=== PATIENT | male | born 2000 | race Caucasian/White ===

== ENCOUNTER 2022-07-27 21:18 | Emergency (ER) | payer BC, SELFPAY ==
[2022-07-27 21:26] VITALS: BP 138/77; PULSE 70; RESP 18; TEMP 37.1; O2SAT 96; BMI 29.8
--- NOTE | 2022-07-27 21:38 | CRLHL7_ITS ---
For Patients: As a result of the Century Cures Act, medical imaging exams and procedure reports are released immediately into your electronic medical record. You may view this report before your referring provider. If you have questions, please contact your health care provider. INDICATION: Cough. TECHNIQUE: Chest 2 view. COMPARISON: None. FINDINGS: Cardiovascular and mediastinum: Heart size and vasculature are normal in caliber and appearance. Lungs and pleural spaces: Lungs are clear. No sign of infiltrate or mass. No sign of pleural effusion. No pneumothorax. Bones and soft tissues: No significant findings. IMPRESSION: No acute cardiopulmonary abnormality. Dictated by Jamal Ashley MD @ 07/27/2022 10:05:32 PM (Electronically Signed)
[2022-07-27] MEDS: IPRAT-ALBUT 0.5-2.5 MG/3 ML NEB 1 NEB IH (21:42)
[2022-07-27] MEDS: predniSONE 10 MG TABLET 50 MG PO (21:46)
--- NOTE | 2022-07-27 21:55 | ED_ITS ---
HPI - SOB/Dyspnea General Date Seen: 07/27/22 Chief Complaint: Shortness of Breath/Dyspnea Stated Complaint: Hard of breathing. Time Seen by Provider: 07/27/22 21:20 Source: patient and family Mode of arrival: ambulatory Limitations: no limitations History of Present Illness HPI Narrative: Patient is a 22-year-old gentleman with a history of asthma, he presents here he has been trying [id number] medications and also his puffer, which eased approximately 6 times today. He reports that he feels short of breath when he is move around inaudibly wheezy. Denies chest pain, fevers chills, purulent sputum production, nausea vomiting, or other issues. Had this before when he was exposed to cats he says but he has been around no cats recently. 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 No previous history of intubation, for admission secondary to asthma. MD elicited complaint: shortness of breath and asthma attack Pertinent past history: asthma Onset (ago): day(s) Timing: constant Severity: moderate Exacerbating factors: movement, coughing and deep breaths Relieving factors: bronchodilators Known history of: asthma Associated symptoms: denies other symptoms Treatment prior to arrival: none Related Data Home oxygen amount: none Home Medications Medication Instructions Recorded Confirmed albuterol sulfate .ROUTE 07/27/22 fluticasone furoate 100 1 inh inhalation DAILY 07/27/22 07/27/22 mcg-vilanterol 25 mcg/dose inhalation powder (Breo Ellipta) Allergies Allergy/AdvReac Type Severity Reaction Status Date / Time cats AdvReac Unknown Uncoded 07/27/22 21:30 Review of Systems Status of ROS: Reports: 10 or more systems reviewed and unremarkable except as noted in History and below [facility] Medical History Asthma Social History Smoking Status: Never smoker Do you use any of these nicotine containing products: None How often do you have a drink containing alcohol: monthly or less AUDIT-C Alcohol total score: 1 Non-prescribed substance use: denies use Exam Narrative: Exam Narrative: Patient is seen in room 3 in no apparent distress, speaking to me in full sentences. Pupils are equal round reactive to light there is no scleral icterus redness TMs are normal oropharynx normal cranial nerves 3-12 are normal, neck is supple, chest reveals musical wheezes in all lung spencer on expiration, no inspiratory wheezes are noted. There is no signs or spy reza distress. Heart sounds are normal with normal S1-S2 no S3-S4 clicks murmurs or gallops his abdomen is soft and obese there is no guarding no past splenomegaly skin rule petechiae rashes negative Homans sign with no edema noted bilaterally. And news is all extremities well with normal power in his upper lower extremities in these by her laterally symmetrical. Skin reveals no rashes. Const: Vital Signs, click to edit/add: Vital Signs - 24 hr 07/27/22 21:26 Temperature 98.8 F Pulse Rate [Left P ulse Oximeter] 70 Respiratory Rate 18 Blood Pressure [Le ft Upper Arm] 138/77 Pulse Oximetry 96 Oxygen Delivery Me thod Room Air Documenting provider has reviewed patient's vital signs: yes Course Course Hospital Course: Patient improved here with the above treatments he felt the best he has felt in a couple days. At this point I would be reasonable with our improvement in peak flows to discharge him home, he is almost out of his inhaler and I gave him another prescription for this along with the prednisone. We went over signs and symptoms of worsening when he should reappear to the emergency room and he was comfortable with this plan. I recommend follow-up with primary care within the next 5 days for recheck. Sooner if issues we will also call in if the COVID swab is positive. Vital Signs Vital signs: Initial Vital Signs Temperature 98.8 F 07/27/22 21:26 Temperature Source Temporal Artery Scan 07/27/22 21:26 Pulse Rate 70 07/27/22 21:26 Pulse Rhythm 07/27/22 21:26 Respiratory Rate 18 07/27/22 21:26 Blood Pressure 138/77 07/27/22 21:26 Blood Pressure Mean 97 07/27/22 21:26 Blood Pressure Position Sitting 07/27/22 21:26 Pulse Oximetry 96 07/27/22 21:26 Oxygen Delivery Method 07/27/22 21:26 Vital Signs Temperature 98.8 F 07/27/22 21: Pulse Rate 70 07/27/22 21:26 Respiratory Rate 18 09/18/22 21:26 Blood Pressure 138/77 07/27/22 21:26 Pulse Oximetry 96 07/27/22 21:26 Oxygen Delivery Method 07/27/22 21:26 Temperature 98.8 F 07/27/22 21:26 Pulse Rate 70 07/27/22 21:26 Respiratory Rate 18 07/27/22 21:26 Blood Pressure 138/77 07/27/22 21:26 Pulse Oximetry 96 07/27/22 21:26 Oxygen Delivery Method 07/27/22 21:26 MDM - SOB/Dyspnea MDM Narrative Medical decision making narrative: Life-threatening differential diagnosis includes occluded COPD exacerbation, pulmonary edema, acute coronary syndromes, pulmonary embolism, pneumonia, and pneumothorax. Other differential diagnosis considerations include asthma, bronchitis as well as other etiologies We will do peak flow, will get a chest x-ray, we will give him a DuoNeb here, along with some prednisone. Differential Diagnosis Differential diagnosis: Likely acute exacerbation of chronic obstructive airways disease, congestive heart failure, community acquired pneumonia and asthma with exacerbation Medical Records Attestation: I reviewed the patient's medical records. Imaging Data Chest x-ray: Attestation: I have reviewed the pertinent imaging results. My impression: Nothing acute hyperinflation Radiologist's impression: atient: CHAVA DUGAN Facility:?[facility] Patient ID:?[id number] Site Patient ID:?[id number]. Site :?[id number] Study:?XRay Chest 2 views-07/27/2022 9:54:15 PM Ordering Physician:Fernanda Landry Final Report: INDICATION: Cough. TECHNIQUE: Chest 2 view. COMPARISON: None. FINDINGS: Cardiovascular and mediastinum: Heart size and vasculature are normal in caliber and appearance. Lungs and pleural spaces: Lungs are clear. No sign of infiltrate or mass. No sign of pleural effusion. No pneumothorax. Bones and soft tissues: No significant findings. IMPRESSION: No acute cardiopulmonary abnormality. Dictated by Jamal Ashley MD @ 07/27/2022 10:05:32 PM (Electronic Signature) Discharge Plan Discharge Clinical Impression: Asthma with acute exacerbation Patient Disposition: Home, Self-Care Condition: Improved Instructions: Asthma (DC), How to Use a Metered-Dose Inhaler (ED), Wheezing (ED) Additional Instructions: Home rest medications as directed I have given you prescription for a new inhaler along with the prednisone. You may take the other medications also, the prednisone will kick in and really help you, increasing chest pain shortness of breath or other issues you should come back, but I suspect that this will help you amazingly well. Follow-up with primary care, but still primary care doctor you can see in follow-up. Prescriptions: No Action fluticasone furoate-vilanterol [Breo Ellipta] 100-25 mcg/dose blister with device 1 inh inhalation DAILY albuterol sulfate .ROUTE Follow Up/Referrals: Vidal Bueno MD [Staff Physician] - Provider,Not a Local [Referring] - Frantz Carranza MD [Emergency Provider] - Stand Alone Forms: [facility] Info Instructions
[2022-07-27 22:00] VITALS: RESP 16; O2SAT 99
--- NOTE | 2022-07-27 22:07 | ED.NURSE ---
PeakFlow preneb 140. PeakFlow postneb 360.
[2022-07-27 22:46] LABS: PCR FLU A Negative PCR FLU A (Negative); PCR FLU B Negative PCR FLU B (Negative)
[2022-07-27 22:56] LABS: SARS PCR* Negative SARS-CoV-2 (Negative)
== END 2022-07-27 22:32 | disposition home or self-care (01) ==
PROVIDERS: Emergency Provider Family Medicine; PCP Family Medicine
DX: J45.901 Unspecified asthma with (acute) exacerbation (principal)
CPT/HCPCS: 71046; 87631; 94640; 99284; J7512

== ENCOUNTER 2022-09-11 21:48 | Emergency (ER) | payer BC, SELFPAY ==
[2022-09-11 22:10] VITALS: BP 132/78; PULSE 62; RESP 18; TEMP 37; O2SAT 99; BMI 30.7
--- NOTE | 2022-09-11 22:17 | ED_ITS ---
HPI - General Adult General Time Seen by Provider: 22:17 Date Seen: 09/11/22 Chief complaint: Flank Pain Stated complaint: Kidney Stones Time Seen by Provider: 09/11/22 22:04 Source: patient Mode of arrival: ambulatory Limitations: no limitations History of Present Illness HPI narrative: Wanda is a 22-year-old male with no past medical history presents to the [facility] department via private car with right flank and lower back pain. Patient states that 1 hour ago, he was putting his daughter in the back seat, he felt something in his right lower back, when he was driving the pain progressively got worse, was a tightening crampy pain, he denied any midline tenderness, pain did not radiate down his leg. No real history of any back problems, no history of any kidney stones. He felt like he had to go urinate, he feels he did not completely empty, he still has the urge to go, he denies any dye see area, penile discharge or increased urinary frequency. Denies any fevers or chills. Has not had anything like this in the past. Denies any numbness, tingling or paresthesias of lower extremities. Patient is ambulating with no difficulty. No nausea vomiting, no flank or abdominal pain, bowel movements have been normal, pain was worse with movement. Related Data Home Medications Medication Instructions Recorded Confirmed albuterol sulfate 90 mcg/actuation 2 puff inhalation Q4-6H PRN 09/11/22 09/11/22 aerosol inhaler Previous Rx's Medication Instructions Recorded tamsulosin 0.4 mg capsule (Flomax) 0.4 mg PO DAILY 5 days #5 caps 09/11/22 Allergies Allergy/AdvReac Type Severity Reaction Status Date / Time cats Allergy Mild Congestion Uncoded 09/11/22 22:16 Review of Systems Status of ROS: Reports: 10 or more systems reviewed and unremarkable except as noted in History and below [facility] Medical History (Updated 09/11/22 @ 23:35 by Yusef Osborne MD) Asthma Surgical History (Updated 09/11/22 @ 22:25 by Fito Nassar RN) No significant past surgical history Social History Smoking Status: Never smoker Do you use any of these nicotine containing products: None How often do you have a drink containing alcohol: monthly or less AUDIT-C Alcohol total score: 1 Non-prescribed substance use: denies use Exam Narrative: Exam Narrative: General: No obvious distress, sitting comfortably HEENT: Pupils equal round reactive to light, extraocular muscles intact Neck: Supple, full range of motion Heart: Normal sinus rhythm S1-S2 Lungs: Her to auscultation bilaterally Abdomen: Soft, nontender, bowel sounds present Muscle skeletal: No midline lumbar spine tenderness, mild tenderness to palpation in the upper and lower paraspinal musculature on the right, straight leg raise and crossover negative at 20?, +5 strength lower extremities. Neuro: Alert awake and oriented x3, gait within normal limits Const: Vital Signs, click to edit/add: Vital Signs - 24 hr 09/11/22 22:10 Temperature 98.6 F Pulse Rate [Right Pulse Oximeter] 62 Respiratory Rate 18 Blood Pressure [Ri ght Upper Arm] 132/78 Pulse Oximetry 99 Oxygen Delivery Me thod Room Air Course Course Hospital Course: 10:00PM: AIDET performed. Workup will include urinalysis, bladder scan, atypical presentation for a kidney stone, could be muscle skeletal in nature. Differential diagnosis include renal calculi, appendicitis less likely, pyelonephritis, constipation, muscle skeletal, spinal stenosis, radiculopathy, as other etiologies Reevaluation(s) Reevaluation #1: Patient's pain is 7/10, urinalysis showed 3+ blood, suspect urolithiasis, will obtain CBC, CMP, 1 L 0.9 normal saline, 30 mg IV Toradol and CT abdomen pelvis without IV contrast. Time: 22:53 Reevaluation #2: Patient was updated on his imaging results, CT abdomen pelvis without IV contrast showed a 2 mm stone in the distal right ureter with minimal hydronephrosis or hydroureter. No additional collecting system stone identified. Labs were otherwise reassuring, urinalysis showed no signs of infection. Patient given 0.4 mg Flomax, he is feeling better after above care given, plan would be to discharge, prescription for Flomax to be given over the next few days, patient to continue with Motrin 600-800 mg every 4-6 hours as needed for pain. He should follow up with primary care provider over the next 7-10 days. Return precautions given. Time: 23:33 Vital Signs Vital signs: Initial Vital Signs Temperature 98.6 F 09/11/22 22:10 Temperature Source Temporal Artery Scan 09/11/22 22:10 Pulse Rate 62 09/11/22 22:10 Respiratory Rate 18 09/11/22 22:10 Blood Pressure 132/78 09/11/22 22:10 Blood Pressure Mean 96 09/11/22 22:10 Blood Pressure Position Sitting 09/11/22 22:10 Pulse Oximetry 99 09/11/22 22:10 Oxygen Delivery Method 09/11/22 22:10 Vital Signs Temperature 98.6 F 09/11/22 22:10 Pulse Rate 62 09/11/22 22:10 Respiratory Rate 18 09/11/22 22:10 Blood Pressure 132/78 09/11/22 22:10 Pulse Oximetry 99 09/11/22 22:10 Oxygen Delivery Method 09/11/22 22:10 Temperature 98.6 F 09/11/22 22:10 Pulse Rate 62 09/11/22 22:10 Respiratory Rate 18 09/11/22 22:10 Blood Pressure 132/78 09/11/22 22:10 Pulse Oximetry 99 09/11/22 22:10 Oxygen Delivery Method 09/11/22 22:10 Medical Decision Making Lab Data Labs: Lab Results 09/11/22 09/11/22 09/11/22 Range/Units 22:04 23:05 23:05 WBC 9.26 (4.50-11.00) K/uL RBC 4.72 (4.30-5.90) m/uL Hgb 14.3 (13.5-17.5) gm/dL Hct 41.1 (37.0-53.0) % MCV 87 (80-100) fL MCH 30 (26-34) pg MCHC 35 (32-36) gm/dL RDW Coeff of Dara 11.8 (11.5-15.5) % Plt Count 291 (140-440) K/uL Neut % (Auto) 69.2 (42.0-72.0) % Lymph % (Auto) 20.4 (20-44) % [place] % (Auto) 4.5 (0.0-11.0) % Eos % (Auto) 5.4 (0.0-7.0) % Baso % (Auto) 0.4 (0.0-3.0) % Neut # (Auto) 6.40 (1.7-7.0) K/uL Lymph # (Auto) 1.89 (0.90-2.90) K/uL [place] # (Auto) 0.40 (0.00-0.90) K/UL Eos # (Auto) 0.50 (0.00-0.50) K/uL Baso # (Auto) 0.04 (0.00-0.30) K/uL Abs Immat Gran (auto) 0.01 (0.00-0.30) K/uL Imm/Tot Granulo (auto) 0.1 % Sodium 141 (135-149) mmol/L Potassium 3.5 L (3.6-5.1) mmol/L Chloride 104 (96-114) mmol/L Carbon Dioxide 26 (20-32) mmol/L BUN 14 (5-24) mg/dL Creatinine 1.1 (0.5-1.5) mg/dL Estimated Creat Clear 113.14 Estimated GFR 98 ml/min Glucose 109 (60-115) mg/dL Calcium 8.9 (8.4-10.6) mg/dL Total Bilirubin 0.7 (0.1-1.5) mg/dL AST 21 (12-35) U/L ALT 30 (4-50) U/L Alkaline Phosphatase 59 (40-150) U/L Total Protein 6.5 (6.0-8.3) g/dL Albumin 4.3 (3.3-5.0) g/dL Urine Color Yellow (Yellow) Urine Appearance Clear (Clear) Urine pH 5.5 (5.0-8.5) Ur Specific [place] >= 1.030 (1.000-1.030) Urine Protein 2+ A (Negative) Urine Glucose (UA) Negative (Negative) Urine Ketones Negative (Negative) Urine Blood 3+ A (Negative) Urine Nitrite Negative (Negative) Urine Bilirubin Negative (Negative) Urine Urobilinogen 0.2 (0.2-1.0) Ur Leukocyte Esterase Negative (Negative) Urine RBC 0-2 (0-2) Urine WBC 25-50 A (0-5) Ur Squamous Epith Cells Few (None-Few) Calcium Oxalate Crystal Moderate A (None) Urine Bacteria Few A (None) Discharge Plan Discharge Clinical Impression: Urolithiasis Patient Disposition: Home, Self-Care Condition: Improved Instructions: Renal Colic (ED) Additional Instructions: Flomax 0.4 mg daily until stone is passed, Motrin 600-800 mg every 4-6 hours as needed for pain, to continue to push the fluids. Follow-up with primary care provider as needed over the next 7-10 days. Activity Level: No Restrictions Discharge Diet: Regular Prescriptions: New tamsulosin [Flomax] 0.4 mg capsule 0.4 mg PO DAILY 5 Days Qty: 5 0RF No Action albuterol sulfate 90 mcg/actuation HFA aerosol inhaler 2 puff INHALATION Q4-6H PRN Label Comments: INHALE 1 TO 2 PUFFS BY MOUTH EVERY 4 TO 6 HOURS NEEDED FOR SHORTNESS OF BREATH OR WHEEZING Follow Up/Referrals: Christo Edwards MD [Primary Care Provider] - Stand Alone Forms: [facility] Info Instructions
[2022-09-11 22:36] LABS: Appearance Urine Clear (Clear); Bilirubin Urine Negative (Negative); Blood Urine 3+ (Negative); Color Urine Yellow (Yellow); Glucose Urine Negative (Negative); Ketones Urine Negative (Negative); Leukocyte Esterase Urine Negative (Negative); Nitrite Urine Negative (Negative); Protein Urine 2+ (Negative); Specific Gravity Urine >= 1.030 (1.000-1.030); Urobilinogen Urine 0.2 (0.2-1.0); pH Urine 5.5 (5.0-8.5)
[2022-09-11 22:44] LABS: Bacteria Urine Few; Calcium Oxalate Crystals Urine Moderate; RBC Urine 0-2 (0-2); Squamous Epithelial Cell Urine Few (None-Few); WBC Urine 25-50 (0-5)
--- NOTE | 2022-09-11 22:53 | CRLHL7_ITS ---
For Patients: As a result of the Cures Act, medical imaging exams and procedure reports are released immediately into your electronic medical record. You may view this report before your referring provider. If you have questions, please contact your health care provider. INDICATION: Right flank and groin pain TECHNIQUE: CT abdomen and pelvis without contrast. COMPARISON: None FINDINGS: Lower chest: Unremarkable. Liver: Unremarkable. Spleen: Unremarkable. Pancreas: Unremarkable. Gallbladder and bile ducts: Unremarkable. Adrenal glands: Unremarkable. Kidneys: 2 mm stone in the distal right ureter with minimal hydronephrosis or hydroureter. No additional collecting system stone identified. GI tract: Unremarkable. Appendix is normal. Vascular structures: Unremarkable. Lymph nodes: Unremarkable. Miscellaneous: Unremarkable. No free air or significant free fluid. Pelvic Organs: Unremarkable. Bones: Unremarkable for age. IMPRESSION: 2 mm stone in the distal right ureter with minimal hydronephrosis or hydroureter. No additional collecting system stone identified. Please note that all CT scans at this facility use dose modulation, iterative reconstruction, and/or weight-based dosing when appropriate to reduce radiation dose to as low as reasonably achievable. Dictated by Mana Mitchell MD @ 09/11/2022 11:18:13 PM (Electronically Signed)
[2022-09-11] MEDS: 0.9 % SODIUM CHLORIDE 1000 ml 1,000 ML IV (23:01)
[2022-09-11 23:09] LABS: Basophils Absolute Auto 0.04 K/uL (0.00-0.30); Basophils Percent Auto 0.4 % (0.0-3.0); Eosinophils Percent Auto 5.4 % (0.0-7.0); Hematocrit 41.1 % (37.0-53.0); Hemoglobin* 14.3 gm/dL (13.5-17.5); Immature Granulocytes Abs Auto 0.01 K/uL (0.00-0.30); Immature Granulocytes Pct Auto 0.1 %; Lymphocytes Absolute Auto 1.89 K/uL (0.90-2.90); Lymphocytes Percent Auto 20.4 % (20-44); Mean Corpuscular HGB Conc 35 gm/dL (32-36); Mean Corpuscular Hemoglobin 30 pg (26-34); Mean Corpuscular Volume 87 fL (80-100); Monocytes Percent Auto 4.5 % (0.0-11.0); Neutrophils Percent Auto 69.2 % (42.0-72.0); Platelet Count* 291 K/uL (140-440); RDW Coefficient of Variation % 11.8 % (11.5-15.5); Red Blood Count 4.72 m/uL (4.30-5.90); White Blood Count* 9.26 K/uL (4.50-11.00)
[2022-09-11 23:16] LABS: Slide Review Reflex No
[2022-09-11] MEDS: KETOROLAC 30 MG/ML inj IVP (23:20)
[2022-09-11 23:22] LABS: Albumin* 4.3 g/dL (3.3-5.0); Chloride* 104 mmol/L (96-114); Sodium* 141 mmol/L (135-149)
[2022-09-11 23:23] LABS: Potassium* 3.5 mmol/L (3.6-5.1)
[2022-09-11 23:25] LABS: Alanine Aminotransferase* 30 U/L (4-50); Alkaline Phosphatase* 59 U/L (40-150); Aspartate Amino Transferase* 21 U/L (12-35); Bilirubin Total* 0.7 mg/dL (0.1-1.5); Blood Urea Nitrogen* 14 mg/dL (5-24); Calcium* 8.9 mg/dL (8.4-10.6); Carbon Dioxide* 26 mmol/L (20-32); Creatinine* 1.1 mg/dL (0.5-1.5); Est. Creatinine Clearance* 113.14; Estimated Glomerular Filt Rate 98 ml/min; Glucose* 109 mg/dL (60-115); Total Protein* 6.5 g/dL (6.0-8.3)
[2022-09-11] MEDS: TAMSULOSIN HCL 0.4 MG CAPSULE PO ×2 (23:40→23:54)
== END 2022-09-12 00:06 | disposition home or self-care (01) ==
PROVIDERS: Emergency Provider Student in an Organized Health Care Education/Training Program; PCP Family Medicine
DX: N20.9 Urinary calculus, unspecified (principal)
CPT/HCPCS: 36415; 74176; 80053; 81003; 81015; 85025; 87086; 96374; 99283; 99284; A9270; J1885; J7030